=== PATIENT | male | born 1990 | race Caucasian/White ===

== ENCOUNTER 2019-04-27 06:53 | Day surgery (SDC) | payer OTHER ==
[~2019-04-27] VITALS: Ht 172.7 cm; Wt 79.5 kg
[2019-04-27 07:12] VITALS: BP 143/83; PULSE 67; TEMP 98.2
[2019-04-27 08:50] VITALS: BP 140/80; PULSE 88; TEMP 97.2
--- NOTE | 2019-04-27 08:50 | NUR ---
Pt to GI [facility] 2 via cart from ENDO. Pt awake and alert. Pt ambulates to recliner with stand by assistance. Pt denies pain or nausea. Friend in room. Pt takes sips of water without difficulties. VSS. Will continue to monitor. Call light within reach.
[2019-04-27 09:05] VITALS: BP 121/69; PULSE 79
--- NOTE | 2019-04-27 09:05 | NUR ---
Pt continues to rest. Denies needs. Tolerating fluids without difficulties. Will continue to monitor.
[2019-04-27 09:20] VITALS: BP 132/73; PULSE 75
--- NOTE | 2019-04-27 09:20 | NUR ---
Discharge instructions reviewed. Pt voices understanding. IV site discontinued with all parts intact. Pt up to dress. Call light within reach.
--- NOTE | 2019-04-27 09:30 | NUR ---
Pt escorted to private car via wheel chair. Pt accompanied home by his friend.
== END 2019-04-27 09:30 | disposition home or self-care (01) ==
LOC: SDCO 06:53
DX: K44.9 Diaphragmatic hernia without obstruction or gangrene (principal); K21.9 Gastro-esophageal reflux disease without esophagitis
CPT/HCPCS: J1200; J2250; J3010; J7030